=== PATIENT | male | born 1960 | race Caucasian/White ===

== ENCOUNTER 2017-11-30 12:34 | Emergency (ER) | payer OTHER, BC ==
[~2017-11-30] VITALS: Wt 88.5 kg
[~2017-11-30 12:34] MED LIST: ALBUTEROL0.09 MG/A2 INH; PERCOCET 325 MG1 TA2 PO
[2017-11-30] MEDS ORDERED: DULE1ARO1 INH (13:02)
[2017-11-30] MEDS ORDERED: METFORMIN HCL500 MG PO (13:02)
[2017-11-30 14:04] LABS: BASO % 0.2 % (0.0-1.0); HEMATOCRIT 45.5 % (42.0-52.0); LYMPH # 1.8 10*3/uL (1.3-4.4); LYMPH % 8.7 % (27.0-41.0); MEAN CELL VOLUME 93.2 fl (80.0-94.0); MEAN CORPUSCULAR HGB 30.7 pg (27.0-31.0); MEAN PLATELET VOLUME 10.6 fl (9.6-12.3); MONO # 1.5 10*3/uL (0.1-1.0); NEUT # 17.5 10*3/uL (2.3-7.9); NEUT % 83.1 % (47.0-73.0); PLATELET COUNT AUTOMATED 260 10*3/uL (130-400); RED BLOOD COUNT 4.88 10*6/uL (4.50-5.90); RED CELL DISTRI WIDTH 13.2 % (0-14.5); WHITE BLOOD COUNT 21.1 10*3/uL (4.8-10.8)
[2017-11-30 14:09] LABS: ACT PARTIAL THROMBO TIME 23.8 SECONDS (20.8-31.5)
[2017-11-30 14:22] LABS: ALBUMIN 4.3 gm/dl (3.1-4.5); ALKALINE PHOSPHATASE 37 U/L (45-117); BUN 18 mg/dl (7-24); CHLORIDE 106 mmol/L (98-107); CREATININE 0.91 mg/dL (0.70-1.30); LIPASE 238 U/L (73-393); POTASSIUM 4.1 mmol/L (3.5-5.1); SGOT/AST 32 IU/L (3-35); SGPT/ALT 43 U/L (12-78); SODIUM 139 mmol/L (136-145); TOTAL PROTEIN 7.8 gm/dL (6.4-8.2)
[2017-11-30 15:34] VITALS: BP 125/67
== END 2017-11-30 16:17 | disposition short-term general hospital (02) ==
LOC: ED 12:34
PROVIDERS: Physician Assistant
DX: S22.41XA Multiple fractures of ribs, right side, initial encounter for closed fracture (principal); J93.83 Other pneumothorax; Z90.49 Acquired absence of other specified parts of digestive tract; Z79.899 Other long term (current) drug therapy; W06.XXXA Fall from bed, initial encounter; Y93.89 Activity, other specified; Y92.89 Other specified places as the place of occurrence of the external cause; Y99.9 Unspecified external cause status

== ENCOUNTER → 2019-08-03 | Outpatient (CLI) | payer BC ==
[~2019-08-03] MED LIST changes: +DULE1ARO1 INH; +METFORMIN HCL500 MG PO
== END | disposition home or self-care (01) ==
LOC: CP 14:20
DX: J41.1 Mucopurulent chronic bronchitis (principal)

== ENCOUNTER → 2020-05-09 | Outpatient (CLI) | payer BC ==
[~2020-05-09] MED LIST changes: +LISINOPRIL5 MG PO
== END | disposition home or self-care (01) ==
LOC: COVID19 00:51
DX: Z01.818 Encounter for other preprocedural examination (principal); Z11.59 Encounter for screening for other viral diseases

== ENCOUNTER → 2020-05-15 | Day surgery (SDC) | payer BC ==
[~2020-05-15] VITALS: Ht 180.3 cm; Wt 92.1 kg
[2020-05-15 12:46] VITALS: BP 151/84
[2020-05-15 14:09] VITALS: BP 124/78
[2020-05-15 14:24] VITALS: BP 106/63
[2020-05-15 14:41] VITALS: BP 121/66
== END | disposition home or self-care (01) ==
LOC: SDC 05-12 13:15
DX: Z12.11 Encounter for screening for malignant neoplasm of colon (principal); K63.5 Polyp of colon; J44.9 Chronic obstructive pulmonary disease, unspecified; E11.9 Type 2 diabetes mellitus without complications; Z98.890 Other specified postprocedural states; Z79.899 Other long term (current) drug therapy; Z87.891 Personal history of nicotine dependence

== ENCOUNTER → 2021-03-30 | Outpatient (CLI) | payer BC ==
[2021-03-30 18:18] LABS: HEMATOCRIT 42.3 % (42.0-52.0); MEAN CELL VOLUME 95.5 fl (80.0-94.0); MEAN CORPUSCULAR HGB 30.9 pg (27.0-31.0); MEAN CORPUSCULAR HGB CONC 32.4 g/dl (33.0-37.0); MEAN PLATELET VOLUME 10.1 fl (9.6-12.3); RED BLOOD COUNT 4.43 10*6/uL (4.50-5.90); RED CELL DISTRI WIDTH 13.3 % (0-14.5); WHITE BLOOD COUNT 11.9 10*3/uL (4.8-10.8)
[2021-03-30 18:50] LABS: ALBUMIN 3.8 gm/dl (3.1-4.5); ALKALINE PHOSPHATASE 37 U/L (45-117); BUN 15 mg/dl (7-24); CHLORIDE 108 mmol/L (98-107); CHOLESTEROL 153 mg/dL (<200); CREATININE 0.93 mg/dL (0.70-1.30); LDL CHOLESTEROL 75 mg/dL (9-159); SGOT/AST 14 IU/L (3-35); SGPT/ALT 29 U/L (12-78); SODIUM 141 mmol/L (136-145); TRIGLYCERIDES 245 mg/dl (<150)
== END | disposition home or self-care (01) ==
LOC: LAB 17:44
PROVIDERS: ATTEND Physician Assistant
DX: E11.36 Type 2 diabetes mellitus with diabetic cataract (principal)

== ENCOUNTER 2021-04-13 11:53 | Emergency (ER) | payer BC ==
[~2021-04-13] VITALS: Ht 182.8 cm; Wt 90.7 kg
[2021-04-13 11:58] VITALS: BP 154/110
[2021-04-13] MEDS ORDERED: NAPROSYN500 MG PO (13:46)
[2021-04-13] MEDS ORDERED: MEDROL DOSEPAK4 MG PO (13:46)
== END 2021-04-13 13:57 | disposition home or self-care (01) ==
LOC: ED 11:53
DX: M54.16 Radiculopathy, lumbar region (principal); Z79.84 Long term (current) use of oral hypoglycemic drugs; Z79.899 Other long term (current) drug therapy; Z90.49 Acquired absence of other specified parts of digestive tract

== ENCOUNTER → 2022-05-26 | Outpatient (CLI) | payer BC ==
[~2022-05-26] MED LIST changes: +MEDROL DOSEPAK4 MG PO; +NAPROSYN500 MG PO
== END | disposition home or self-care (01) ==
LOC: CARD 05-24 09:00
PROVIDERS: ATTEND Physician Assistant
DX: R42 Dizziness and giddiness (principal); R55 Syncope and collapse

== ENCOUNTER → 2022-06-26 | Outpatient (CLI) | payer BC | END | disposition home or self-care (01) | LOC: US 08:19 | PROVIDERS: ATTEND Physician Assistant | DX: E04.2 Nontoxic multinodular goiter (principal); I65.23 Occlusion and stenosis of bilateral carotid arteries; R42 Dizziness and giddiness; R55 Syncope and collapse; E11.36 Type 2 diabetes mellitus with diabetic cataract ==